=== PATIENT | female | born 1985 | race African-American/Black ===

== ENCOUNTER 2024-10-20 23:29 | Emergency (ER) | payer BC ==
[~2024-10-20] VITALS: Ht 165.1 cm; Wt 106.6 kg
--- NOTE | 2024-10-21 02:10 | ERN ---
General Chief Complaint: Lower Extremity Pain/Injury Stated Complaint: C/O PAIN TO LEFT LEG Time Seen by MD: 23:43 Time Seen by Midlevel: 23:43 Source: patient History of Present Illness Initial Comments THE PATIENT IS A 39-YEAR-OLD FEMALE PRESENTING TO THE EMERGENCY DEPARTMENT FOR EVALUATION OF LEFT LEG PAIN. PATIENT REPORTS INJURING HER LEFT LEG ON SEPTEMBER 11, 2024 AFTER SLIPPING AND STATES HER LEG IS STILL PAINFUL. AT THE TIME OF HER INITIAL INJURY SHE WAS NOT ASSESSED BY PHYSICIAN AND WANTED FURTHER EVALUATION TODAY. Allergies: Coded Allergies: codeine (Unverified Allergy, Unknown, 10/20/24) Past Medical History Past Medical History: No Pertinent History Past Surgical History: None Female( History) LMP: Oct 20, 2024 ROS Dictation CONSTITUTIONAL: Negative except for HPI HEAD/FACE: Negative except for HPI EENT: Negative except for HPI RESPIRATORY: Negative except for HPI GASTROINTESTINAL/ABDOMINAL: Negative except for HPI GENITOURINARY: Negative except for HPI MUSCULOSKELETAL: Negative except for HPI INTEGUMENTARY: Negative except for HPI NEUROLOGICAL/PSYCH: Negative except for HPI HEMATOLOGIC/LYMPHATIC: Negative except for HPI All Systems Negative, Except as noted above. 13 point review of systems assessed and all negative except for above. Physical Exam Physical Exam Dictation Vital Signs reviewed General Appearance: Alert, oriented x 3, no acute distress, well developed, nourished. Head and Face: non-traumatic. Eyes: PERRL, pink conjunctivas, eyelid no trauma, anterior chamber with arcus senilis. Ears: Pinnas intact and no signs of trauma or erythema ear canals clear and no discharge TM no erythema Nose: No discharge, no bleeding. Oropharynx: Mouth normal, tongue pink, pharynx clear,no erythema, tonsils no exudates, no abscesses noted, mucous membrane moist Neck: Supple, non-tender, no thyromegaly, no masses, no JVD, no bruits Breast:Deferred Chest:No tenderness, no crepitus, no paradoxical movement, no retractions Lungs:Clear, well-ventilated, symmetric, no rales, no wheezing, no rhonchi, no stridor, good breath sounds bilaterally Heart: Regular rate, regular rhythm, no murmur, no gallops Vascular: no peripheral edema, Abdomen: Soft, positive bowel sounds, nondistended, no guarding, nontender, no rebound, no masses no hepatomegaly, no splenomegaly, no Fuentes's sign, no hernias. Rectal: Deferred Genital: Deferred Neurological: Normal speech, motor function intact, sensory function intact Musculoskeletal: Neck nontender, full range of motion, back nontender, full range of motion, Extremities: nontender, full range of motion Skin: Color pink, dry, no turgor, no rash, no lacerations, no abrasions, no contusions. Lymphatic: Deferred MDM MDM: Differential diagnosis: Fracture, contusion, dislocation There are no social concerns with this patient. Prescription drug management Prescriptions will include: None Medical management and examination interpretation discussions were had by me with other qualified healthcare professionals as indicated for the patient's care. ED Course Orders Procedure Category Date Status Time Tibia/Fibula 2vws Lt RAD 10/21/24 Taken 00:52 Knee 3vws Lt RAD 10/21/24 Taken 00:52 Vital Signs Date Time Temp Pulse Resp B/P (MAP) Pulse Ox O2 Delivery O2 Flow Rate FiO2 10/20/24 23:49 98.8 82 18 119/78 Room Air* 0 21 10/20/24 23:31 98.4 88 20 149/75 99 Room Air DX & DISP Disposition: Discharge Departure Impression: Primary Impression: Contusion of left leg Condition: Stable Additional Instructions: Your left lower extremity x-ray is unremarkable. There are no signs of a fracture. Your left knee x-ray is normal. Please follow up with your primary care doctor for further evaluation. You may take Tylenol and Motrin as needed for pain. Referrals: SELF,REFERRAL (PCP) Time of Disposition: 02:09 I have reviewed the case, and I agree with, Diagnosis and Plan I performed the substantive portion of the visit. I have reviewed and personally made and approve the management plan that is documented in the note b y myself or the BALDO. I acknowledge for responsibility for the patient's management plan. LESLIE VALDEZ Oct 21, 2024 02:10
[2024-10-21 02:24] VITALS: BP 125/66; PULSE 75; RESP 18; TEMP 98.8; O2SAT 99
--- NOTE | 2024-10-21 02:25 | HMCIMG ---
EXAM: CR Left Knee, 4 views. CLINICAL HISTORY: Fall. COMPARISON: None provided. FINDINGS: No acute fracture or aggressive appearing osseous lesion. Joint spaces are within normal limits. There is no joint effusion appreciated. The soft tissues are unremarkable. IMPRESSION: No acute bony abnormality is evident. /[place]
--- NOTE | 2024-10-21 02:26 | HMCIMG ---
EXAM: CR Left Tibia and Fibula, 2 views. CLINICAL HISTORY: Fall. COMPARISON: None provided. FINDINGS: No acute fracture or aggressive appearing osseous lesion. Joint spaces are within normal limits. The soft tissues are unremarkable. IMPRESSION: No acute bony abnormality is evident. /[place]
== END 2024-10-21 02:25 | disposition home or self-care (01) ==
LOC: EDH 23:29
DX: S80.12XA Contusion of left lower leg, initial encounter (principal); Z88.5 Allergy status to narcotic agent; W01.0XXA Fall on same level from slipping, tripping and stumbling without subsequent striking against object, initial encounter; Y93.89 Activity, other specified; Y92.89 Other specified places as the place of occurrence of the external cause; Y99.8 Other external cause status
CPT/HCPCS: 73562; 73590; 99284